=== PATIENT | male | born 1970 | race Caucasian/White ===

== ENCOUNTER 2017-03-21 16:15 | Emergency (ER) | payer SELFPAY ==
[~2017-03-21] VITALS: Ht 165.1 cm; Wt 63.6 kg
[2017-03-21] MEDS ORDERED: TOBRAMYCIN SULFATE 0.3% 5 ML OPHTHALMIC SOLUTION OU ONE (17:00)
[2017-03-21 18:19] VITALS: BP 118/88
== END 2017-03-21 18:21 | disposition home or self-care (01) ==
LOC: EMS 16:16
DX: T63.791A Toxic effect of contact with other venomous plant, accidental (unintentional), initial encounter (principal); H10.213 Acute toxic conjunctivitis, bilateral; Y92.89 Other specified places as the place of occurrence of the external cause
CPT/HCPCS: 99283